=== PATIENT | female | born 1960 | race American Indian/Alaskan Native ===

== ENCOUNTER 2020-09-08 16:31 | Emergency (ER) | payer MEDICAID ==
--- NOTE | 2020-09-08 19:40 | Event Note ---
ED Screening Note Date of service: 09/08/20 Time: 19:39 ED Screening Note: Patient 52-year-old -[place] female history of EtOH abuse states substance abuse polyps. Question medical clearance for rehab. Patient states occasional thoughts of SI however no SI at this time. No plan, patient denies other symptoms. This initial assessment/diagnostic orders/clinical plan/treatment(s) is/are subject to change based on patients health status, clinical progression and re- assessment by fellow clinical providers in the ED. Further treatment and workup at subsequent clinical providers discretion. Patient/guardian urged not to elope from the ED as their condition may be serious if not clinically assessed and managed. Initial orders include: Pych Eval, uds, cbc, bmp, salic. tyl, dilantin
[2020-09-08 20:22] LABS: Hematocrit 38.2 % (30.3-42.9); Hemoglobin 13.1 gm/dl (10.1-14.3); Mean Corpuscular HGB Conc 34 % (30-34); Mean Corpuscular Volume 100 fl (79-97); Platelet Count 226 K/mm3 (140-440); Red Blood Count 3.82 M/mm3 (3.65-5.03); Red Cell Distribution Width 12.9 % (13.2-15.2)
[2020-09-08 20:36] LABS: Calcium 9.3 mg/dL (8.4-10.2)
[2020-09-08 21:32] LABS: Total Cells Counted 100
[2020-09-08 21:33] LABS: Platelet Estimate Consistent w Auto; RBC Morphology Normal
--- NOTE | 2020-09-08 21:42 | Emergency Department Report ---
ED General Adult HPI - General Chief complaint: Medical Clearance Stated complaint: I need to get off drugs PUI?: No Time Seen by Provider: 09/08/20 21:22 Source: patient, RN notes reviewed Mode of arrival: Ambulatory Limitations: No Limitations - History of Present Illness Initial comments: The patient is a 60-year-old female. She is not known to myself previously. She has a history of HIV and hypertension, and polysubstance abuse. She does not know her CD4 count. She does not know her viral load. She indicates she has not been on her antiviral medications for about 1 month. She presents to the ER today with a primary complaint of wanting to get off alcohol and drugs. She last consumed alcohol yesterday. She last consumed crack cocaine yesterday. She states that she snorts crack cocaine. She does not inject. She denies physical pain. She denies loss of taste and smell. She denies nausea, vomiting and diarrhea. She is anxious. She was feeling suicidal, and she has been having hallucinations. The patient states that she was at [place], trying to get out of the sun, and then came here. Previously, she states that she has lived in [place]. She reports that she gets SSI check once or twice a month, via daily directed positive. She thinks it is on the first of the month. The patient states that she is currently homeless, and evicted, and has no place to go. The patient currently denies headache, neck pain, chest pain, abdominal pain, shortness of breath, urinary symptoms. She is hungry. -: Gradual Improves with: none Worsens with: none - Related Data Home Medications Medication Instructions Recorded Confirmed Last Taken Bictegrav/Emtricit/Tenofov Ala 1 each PO DAILY 09/08/20 09/08/20 Unknown [Biktarvy 50-200-25 mg (Nf)] Cholecalciferol (Vitamin D3) 1,000 unit PO DAILY 09/08/20 09/08/20 Unknown [Vitamin D3] Fenofibrate Nanocrystallized 54 mg PO DAILY 09/08/20 09/08/20 Unknown [Fenofibrate] Vivian Carbonate ER [Lithobid ER] 300 mg PO QHS 09/08/20 09/08/20 Unknown Losartan [Cozaar] 50 mg PO QDAY 09/08/20 09/08/20 Unknown Metoprolol Xl [Metoprolol 100 mg PO QDAY 09/08/20 09/08/20 Unknown SUCCINATE ER TAB] Oxybutynin Chloride [Ditropan Xl] 10 mg PO QDAY 09/08/20 09/08/20 Unknown Ziprasidone HCl [Geodon] 80 mg PO QPM 09/08/20 09/08/20 Unknown Ziprasidone [Geodon] 60 mg PO QAM 09/08/20 09/08/20 Unknown Previous Rx's Medication Instructions Recorded Last Taken Type Sulfamethoxazole/Trimethoprim 1 each PO BID #10 tablet 09/11/20 Unknown Rx [Bactrim 400-80 mg Tablet] Allergies Allergy/AdvReac Type Severity Reaction Status Date / Time lisinopril Allergy Angioedema Verified 09/08/20 22:03 ED Review of Systems ROS: Stated complaint: MH EVAL Other details as noted in HPI Constitutional: denies: fever Eyes: denies: eye discharge ENT: denies: epistaxis Respiratory: denies: cough Cardiovascular: denies: chest pain Gastrointestinal: denies: abdominal pain, nausea, vomiting Genitourinary: denies: dysuria Musculoskeletal: denies: back pain Psychiatric: anxiety, depression, visual hallucinations, suicidal thoughts ED Past Medical Hx - Past Medical History Hx Hypertension: Yes Hx HIV: Yes - Surgical History Past Surgical History?: No - Social History Smoking Status: Former Smoker Substance Use Type: Alcohol, Cocaine - Medications Home Medications: Home Medications Medication Instructions Recorded Confirmed Last Taken Type Bictegrav/Emtricit/Tenofov Ala 1 each PO DAILY 09/08/20 09/08/20 Unknown History [Biktarvy 50-200-25 mg (Nf)] Cholecalciferol (Vitamin D3) 1,000 unit PO DAILY 09/08/20 09/08/20 Unknown History [Vitamin D3] Fenofibrate Nanocrystallized 54 mg PO DAILY 09/08/20 09/08/20 Unknown History [Fenofibrate] Vivian Carbonate ER [Lithobid ER] 300 mg PO QHS 09/08/20 09/08/20 Unknown History Losartan [Cozaar] 50 mg PO QDAY 09/08/20 09/08/20 Unknown History Metoprolol Xl [Metoprolol 100 mg PO QDAY 09/08/20 09/08/20 Unknown History SUCCINATE ER TAB] Oxybutynin Chloride [Ditropan Xl] 10 mg PO QDAY 09/08/20 09/08/20 Unknown History Ziprasidone HCl [Geodon] 80 mg PO QPM 09/08/20 09/08/20 Unknown History Ziprasidone [Geodon] 60 mg PO QAM 09/08/20 09/08/20 Unknown History Sulfamethoxazole/Trimethoprim 1 each PO BID #10 tablet 09/11/20 Unknown Rx [Bactrim 400-80 mg Tablet] ED Physical Exam - General Limitations: No Limitations General appearance: alert, anxious, obese - Head Head exam: Present: atraumatic, normocephalic - Eye Eye exam: Present: normal appearance, EOMI. Absent: nystagmus - ENT ENT exam: Present: normal exam, normal orophraynx, mucous membranes moist, normal external ear exam, other (No tongue fasciculations noted) - Neck Neck exam: Present: normal inspection, full ROM. Absent: tenderness, menin gismus - Respiratory Respiratory exam: Present: normal lung sounds bilaterally. Absent: respiratory distress, wheezes, rales, rhonchi, stridor, decreased breath sounds - Cardiovascular Cardiovascular Exam: Present: normal rhythm, tachycardia, normal heart sounds. Absent: bradycardia, irregular rhythm, systolic murmur, diastolic murmur, rubs, gallop - GI/Abdominal GI/Abdominal exam: Present: soft. Absent: distended, tenderness, guarding, rebound, rigid, pulsatile mass - Extremities Exam Extremities exam: Present: normal inspection, full ROM, other (2+ pulses noted in the bilateral upper and lower extremities. There is no palpable cord. negative Homans sign. Muscular compartments are soft. The pelvis is stable.). Absent: pedal edema, calf tenderness - Back Exam Back exam: Present: normal inspection, full ROM. Absent: tenderness, CVA tenderness (R), CVA tenderness (L), paraspinal tenderness, vertebral tenderness - Neurological Exam Neurological exam: Present: alert, oriented X3, other (No facial droop. Tongue midline. Extraocular movements intact bilaterally. Facial sensation intact to light touch in V1, V2, V3 distribution bilaterally. 5 and a 5 strength in 4 extremities. Sensation intact to light touch in 4 extremities.) - Psychiatric Psychiatric exam: Present: anxious, suicidal ideation. Absent: homicidal ideation - Skin Skin exam: Present: warm, dry, intact, normal color. Absent: rash ED Course Vital Signs 09/08/20 09/08/20 09/08/20 19:36 21:44 23:00 Temperature 99.4 F 99.6 F Pulse Rate 103 H 98 H 105 H Respiratory 18 22 20 Rate Blood Pressure 129/91 Blood Pressure 134/86 136/94 [Left] O2 Sat by Pulse 95 99 99 Oximetry 09/08/20 09/09/20 09/09/20 23:07 01:00 03:00 Temperature Pulse Rate 91 H 82 Respiratory 20 20 20 Rate Blood Pressure Blood Pressure 138/73 132/65 [Left] O2 Sat by Pulse 99 99 98 Oximetry 09/09/20 05:00 Temperature Pulse Rate 85 Respiratory 20 Rate Blood Pressure Blood Pressure 132/67 [Left] O2 Sat by Pulse 99 Oximetry - Reevaluation(s) Reevaluation #1: 09/08/20 22:00 Differential diagnosis, including but not limited to: Alcohol dependence, crack cocaine dependence, dehydration, malnutrition, electrolyte derangement, hypovolemic hyponatremia, beer podomania, alcohol withdrawal, medical clearance for psychiatric placement. Assessment and plan: 60-year-old female, who is anxious, fidgeting, tachycardic, with no obvious tongue fasciculations, who is awake, alert, oriented, not encephalopathic, without meningeal signs, with a primary complaint of request for alcohol and crack cocaine detox, secondary complaint of homelessness, on review of systems, has hallucinations and intermittent suicidality. She is not violent, she is pleasant and cooperative. Place patient on 1013. Laboratory studies ordered prior to my personal evaluation of this patient. She is found to have hyponatremia, which I suspect is hypovolemic hyponatremia/beer Podo markus, as well as hypokalemia. Start patient on banana bag, replete potassium, and also order lactated Ringer's. Obtain liver panel, magnesium, ammonia, CK. Place patient on alcohol withdrawal protocol. Give Valium empirically x1 dose. Order hyponatremia labs. Have requested urinalysis, urine toxicology screen. Have requested psychiatric since mental health evaluation. Have requested that nursing team reconcile home medications. Have discussed this plan of care with the patient, she has articulated understanding, and she is amenable to this plan of care. 09/08/20 22:11 Reevaluation #2: 09/08/20 22:59 Heart rate 98 bpm. Sleeping comfortably. Nursing team reports initial ciwa score is 15 Reevaluation #3: 09/09/20 02:47 Patient remains comfortable. Repeat basic metabolic panel shows improvement from initial hyponatremia. Urinalysis suggest urinary tract infection. Mild hypocalcemia appreciated, this may be delusional. TSH within normal limits. LFT, ammonia, within normal limits. Minimal uric acid elevation reviewed and appreciated. Do not suspect acute gout. Outpatient follow-up at this time. Patient resting comfortably, protecting airway, and tachycardia has resolved at this time. At this point in time, the patient does not appear to have an immediate medical contraindication to psychiatric admission, evaluation, consultation and placement. Macrobid twice daily for 14 days for possible urinary tract infection. Calcium carbonate daily for mild hypocalcemia. Multivitamin daily. Benzodiazepine as needed alcohol withdrawal. 09/09/20 05:40 Patient resting comfortably. Home medications reviewed and appreciated. It appears that patient is on lithium. We have ordered a lithium level. Patient's care will be signed out to the oncoming ER physician, to follow-up on lithium level. Assuming lithium within normal limits, we would consider this patient medically suitable for psychiatric admission, evaluation, consultation and placement. 09/11/20 10:21 Vivian level was within normal limits. The patient was ultimately cleared by the psychiatry team for discharge. It appears that she was discharged without antibiotics. I did not discharge this patient. Her culture results are reviewed. I have written this patient. Bactrim prescription. I called up the patient at listed phone number, nobody answered, so I left a voicemail for call back. Awaiting patient's call back. ED Medical Decision Making - Lab Data Result diagrams: 09/08/20 20:00 09/09/20 00:12 Vital Signs 09/08/20 09/08/20 19:36 21:44 Temperature 99.4 F 99.6 F Pulse Rate 103 H 98 H Respiratory 18 22 Rate Blood Pressure 129/91 Blood Pressure 134/86 [Left] O2 Sat by Pulse 95 99 Oximetry Lab Results 09/08/20 09/08/20 09/08/20 Range/Units 20:00 20:00 20:00 WBC 11.9 H (4.5-11.0) K/mm3 RBC 3.82 (3.65-5.03) M/mm3 Hgb 13.1 (10.1-14.3) gm/dl Hct 38.2 (30.3-42.9) % MCV 100 H (79-97) fl MCH 34 H (28-32) pg MCHC 34 (30-34) % RDW 12.9 L (13.2-15.2) % Plt Count 226 (140-440) K/mm3 Add Manual Diff Complete Total Counted 100 Seg Neuts % (Manual) 81.0 H (40.0-70.0) % Lymphocytes % (Manual) 9.0 L (13.4-35.0) % Reactive Lymphs % (Man) 1.0 % Monocytes % (Manual) 7.0 (0.0-7.3) % Eosinophils % (Manual) 1.0 (0.0-4.3) % Basophils % (Manual) 1.0 (0.0-1.8) % Nucleated RBC % Not Reportable Seg Neutrophils # Man 9.6 H (1.8-7.7) K/mm3 Band Neutrophils # 0.0 K/mm3 Lymphocytes # (Manual) 1.1 L (1.2-5.4) K/mm3 Abs React Lymphs (Man) 0.1 K/mm3 Monocytes # (Manual) 0.8 (0.0-0.8) K/mm3 Eosinophils # (Manual) 0.1 (0.0-0.4) K/mm3 Basophils # (Manual) 0.1 (0.0-0.1) K/mm3 Metamyelocytes # 0.0 K/mm3 Myelocytes # 0.0 K/mm3 Promyelocytes # 0.0 K/mm3 Blast Cells # 0.0 K/mm3 WBC Morphology Not Reportable Hypersegmented Neuts Not Reportable Hyposegmented Neuts Not Reportable Hypogranular Neuts Not Reportable Smudge Cells Not Reportable Toxic Granulation Not Reportable Toxic Vacuolation Not Reportable Dohle Bodies Not Reportable Pelger-Huet Anomaly Not Reportable Mj Rods Not Reportable Platelet Estimate Consistent w auto Clumped Platelets Not Reportable Plt Clumps, EDTA Not Reportable Large Platelets Not Reportable Giant Platelets Not Reportable Platelet Satelliting Not Reportable Plt Morphology Comment Not Reportable RBC Morphology Normal Dimorphic RBCs Not Reportable Polychromasia Not Reportable Hypochromasia Not Reportable Poikilocytosis Not Reportable Anisocytosis Not Reportable Microcytosis Not Reportable Macrocytosis Not Reportable Spherocytes Not Reportable Pappenheimer Bodies Not Reportable Sickle Cells Not Reportable Target Cells Not Reportable Tear Drop Cells Not Reportable Ovalocytes Not Reportable Helmet Cells Not Reportable [place] Bodies Not Reportable [place] Rings Not Reportable Clymer Cells Not Reportable Bite Cells Not Reportable Crenated Cell Not Reportable Elliptocytes Not Reportable Acanthocytes (Spur) Not Reportable Rouleaux Not Reportable Hemoglobin C Crystals Not Reportable Schistocytes Not Reportable Malaria parasites Not Reportable Lucian Bodies Not Reportable Hem Pathologist Commnt No Sodium 129 L (137-145) mmol/L Potassium 2.9 L* (3.6-5.0) mmol/L Chloride 91.5 L (98-107) mmol/L Carbon Dioxide 20 L (22-30) mmol/L Anion Gap 20 mmol/L BUN 21 H (7-17) mg/dL Creatinine 1.2 (0.6-1.2) mg/dL Estimated GFR 46 ml/min BUN/Creatinine Ratio 18 % Glucose 105 H (65-100) mg/dL Calcium 9.3 (8.4-10.2) mg/dL Salicylates < 0.3 L (2.8-20.0) mg/dL Acetaminophen (10.0-30.0) ug/mL Phenytoin 0.8 L (10.0-20.0) ug/mL 09/08/20 Range/Units 20:00 WBC (4.5-11.0) K/mm3 RBC (3.65-5.03) M/mm3 Hgb (10.1-14.3) gm/dl Hct (30.3-42.9) % MCV (79-97) fl MCH (28-32) pg MCHC (30-34) % RDW (13.2-15.2) % Plt Count (140-440) K/mm3 Add Manual Diff Total Counted Seg Neuts % (Manual) (40.0-70.0) % Lymphocytes % (Manual) (13.4-35.0) % Reactive Lymphs % (Man) % Monocytes % (Manual) (0.0-7.3) % Eosinophils % (Manual) (0.0-4.3) % Basophils % (Manual) (0.0-1.8) % Nucleated RBC % Seg Neutrophils # Man (1.8-7.7) K/mm3 Band Neutrophils # K/mm3 Lymphocytes # (Manual) (1.2-5.4) K/mm3 Abs React Lymphs (Man) K/mm3 Monocytes # (Manual) (0.0-0.8) K/mm3 Eosinophils # (Manual) (0.0-0.4) K/mm3 Basophils # (Manual) (0.0-0.1) K/mm3 Metamyelocytes # K/mm3 Myelocytes # K/mm3 Promyelocytes # K/mm3 Blast Cells # K/mm3 WBC Morphology Hypersegmented Neuts Hyposegmented Neuts Hypogranular Neuts Smudge Cells Toxic Granulation Toxic Vacuolation Dohle Bodies Pelger-Huet Anomaly Mj Rods Platelet Estimate Clumped Platelets Plt Clumps, EDTA Large Platelets Giant Platelets Platelet Satelliting Plt Morphology Comment RBC Morphology Dimorphic RBCs Polychromasia Hypochromasia Poikilocytosis Anisocytosis Microcytosis Macrocytosis Spherocytes Pappenheimer Bodies Sickle Cells Target Cells Tear Drop Cells Ovalocytes Helmet Cells [place] Bodies [place] Rings Clymer Cells Bite Cells Crenated Cell Elliptocytes Acanthocytes (Spur) Rouleaux Hemoglobin C Crystals Schistocytes Malaria parasites Lucian Bodies Hem Pathologist Commnt Sodium (137-145) mmol/L Potassium (3.6-5.0) mmol/L Chloride (98-107) mmol/L Carbon Dioxide (22-30) mmol/L Anion Gap mmol/L BUN (7-17) mg/dL Creatinine (0.6-1.2) mg/dL Estimated GFR ml/min BUN/Creatinine Ratio % Glucose (65-100) mg/dL Calcium (8.4-10.2) mg/dL Salicylates (2.8-20.0) mg/dL Acetaminophen 5.0 L (10.0-30.0) ug/mL Phenytoin (10.0-20.0) ug/mL Vital Signs 09/08/20 09/08/20 09/08/20 19:36 21:44 23:00 Temperature 99.4 F 99.6 F Pulse Rate 103 H 98 H 105 H Respiratory 18 22 20 Rate Blood Pressure 129/91 Blood Pressure 134/86 136/94 [Left] O2 Sat by Pulse 95 99 99 Oximetry 09/08/20 09/09/20 23:07 01:00 Temperature Pulse Rate 91 H Respiratory 20 20 Rate Blood Pressure Blood Pressure 138/73 [Left] O2 Sat by Pulse 99 99 Oximetry Lab Results 09/08/20 09/08/20 09/08/20 Range/Units 20:00 20:00 20:00 WBC 11.9 H (4.5-11.0) K/mm3 RBC 3.82 (3.65-5.03) M/mm3 Hgb 13.1 (10.1-14.3) gm/dl Hct 38.2 (30.3-42.9) % MCV 100 H (79-97) fl MCH 34 H (28-32) pg MCHC 34 (30-34) % RDW 12.9 L (13.2-15.2) % Plt Count 226 (140-440) K/mm3 Add Manual Diff Complete Total Counted 100 Seg Neuts % (Manual) 81.0 H (40.0-70.0) % Lymphocytes % (Manual) 9.0 L (13.4-35.0) % Reactive Lymphs % (Man) 1.0 % Monocytes % (Manual) 7.0 (0.0-7.3) % Eosinophils % (Manual) 1.0 (0.0-4.3) % Basophils % (Manual) 1.0 (0.0-1.8) % Nucleated RBC % Not Reportable Seg Neutrophils # Man 9.6 H (1.8-7.7) K/mm3 Band Neutrophils # 0.0 K/mm3 Lymphocytes # (Manual) 1.1 L (1.2-5.4) K/mm3 Abs React Lymphs (Man) 0.1 K/mm3 Monocytes # (Manual) 0.8 (0.0-0.8) K/mm3 Eosinophils # (Manual) 0.1 (0.0-0.4) K/mm3 Basophils # (Manual) 0.1 (0.0-0.1) K/mm3 Metamyelocytes # 0.0 K/mm3 Myelocytes # 0.0 K/mm3 Promyelocytes # 0.0 K/mm3 Blast Cells # 0.0 K/mm3 WBC Morphology Not Reportable Hypersegmented Neuts Not Reportable Hyposegmented Neuts Not Reportable Hypogranular Neuts Not Reportable Smudge Cells Not Reportable Toxic Granulation Not Reportable Toxic Vacuolation Not Reportable Dohle Bodies Not Reportable Pelger-Huet Anomaly Not Reportable Mj Rods Not Reportable Platelet Estimate Consistent w auto Clumped Platelets Not Reportable Plt Clumps, EDTA Not Reportable Large Platelets Not Reportable Giant Platelets Not Reportable Platelet Satelliting Not Reportable Plt Morphology Comment Not Reportable RBC Morphology Normal Dimorphic RBCs Not Reportable Polychromasia Not Reportable Hypochromasia Not Reportable Poikilocytosis Not Reportable Anisocytosis Not Reportable Microcytosis Not Reportable Macrocytosis Not Reportable Spherocytes Not Reportable Pappenheimer Bodies Not Reportable Sickle Cells Not Reportable Target Cells Not Reportable Tear Drop Cells Not Reportable Ovalocytes Not Reportable Helmet Cells Not Reportable [place] Bodies Not Reportable [place] Rings Not Reportable Adrianne Cells Not Reportable Bite Cells Not Reportable Crenated Cell Not Reportable Elliptocytes Not Reportable Acanthocytes (Spur) Not Reportable Rouleaux Not Reportable Hemoglobin C Crystals Not Reportable Schistocytes Not Reportable Malaria parasites Not Reportable Lucian Bodies Not Reportable Hem Pathologist Commnt No Sodium 129 L (137-145) mmol/L Potassium 2.9 L* (3.6-5.0) mmol/L Chloride 91.5 L (98-107) mmol/L Carbon Dioxide 20 L (22-30) mmol/L Anion Gap 20 mmol/L BUN 21 H (7-17) mg/dL Creatinine 1.2 (0.6-1.2) mg/dL Estimated GFR 46 ml/min BUN/Creatinine Ratio 18 % Glucose 105 H (65-100) mg/dL Uric Acid (3.5-7.6) mg/dL Calcium 9.3 (8.4-10.2) mg/dL Magnesium (1.7-2.3) mg/dL Total Bilirubin (0.1-1.2) mg/dL Direct Bilirubin (0-0.2) mg/dL Indirect Bilirubin mg/dL AST (5-40) units/L ALT (7-56) units/L Alkaline Phosphatase (35-129) units/L Ammonia (25-60) umol/L Total Creatine Kinase (30-135) units/L Total Protein (6.3-8.2) g/dL Albumin (3.9-5) g/dL Albumin/Globulin Ratio % TSH (0.270-4.200) mlU/mL Urine Color (Yellow) Urine Turbidity (Clear) Urine pH (5.0-7.0) Ur Specific Story (1.003-1.030) Urine Protein (Negative) mg/dL Urine Glucose (UA) (Negative) mg/dL Urine Ketones (Negative) mg/dL Urine Blood (Negative) Urine Nitrite (Negative) Urine Bilirubin (Negative) Urine Urobilinogen (<2.0) mg/dL Ur Leukocyte Esterase (Negative) Urine WBC (Auto) (0.0-6.0) /HPF Urine RBC (Auto) (0.0-6.0) /HPF U Epithel Cells (Auto) (0-13.0) /HPF Urine Bacteria (Auto) (Negative) /HPF Hyaline Casts /LPF Urine Mucus /HPF Urine Osmolality Mosm/kg Urine Sodium mmol/L Salicylates < 0.3 L (2.8-20.0) mg/dL Urine Opiates Screen Urine Methadone Screen Acetaminophen (10.0-30.0) ug/mL Ur Barbiturates Screen Phenytoin 0.8 L (10.0-20.0) ug/mL Ur Phencyclidine Scrn Ur Amphetamines Screen U Benzodiazepines Scrn Urine Cocaine Screen U Marijuana (THC) Screen Drugs of Abuse Note 09/08/20 09/08/20 09/08/20 Range/Units 20:00 22:36 22:36 WBC (4.5-11.0) K/mm3 RBC (3.65-5.03) M/mm3 Hgb (10.1-14.3) gm/dl Hct (30.3-42.9) % MCV (79-97) fl MCH (28-32) pg MCHC (30-34) % RDW (13.2-15.2) % Plt Count (140-440) K/mm3 Add Manual Diff Total Counted Seg Neuts % (Manual) (40.0-70.0) % Lymphocytes % (Manual) (13.4-35.0) % Reactive Lymphs % (Man) % Monocytes % (Manual) (0.0-7.3) % Eosinophils % (Manual) (0.0-4.3) % Basophils % (Manual) (0.0-1.8) % Nucleated RBC % Seg Neutrophils # Man (1.8-7.7) K/mm3 Band Neutrophils # K/mm3 Lymphocytes # (Manual) (1.2-5.4) K/mm3 Abs React Lymphs (Man) K/mm3 Monocytes # (Manual) (0.0-0.8) K/mm3 Eosinophils # (Manual) (0.0-0.4) K/mm3 Basophils # (Manual) (0.0-0.1) K/mm3 Metamyelocytes # K/mm3 Myelocytes # K/mm3 Promyelocytes # K/mm3 Blast Cells # K/mm3 WBC Morphology Hypersegmented Neuts Hyposegmented Neuts Hypogranular Neuts Smudge Cells Toxic Granulation Toxic Vacuolation Dohle Bodies Pelger-Huet Anomaly Mj Rods Platelet Estimate Clumped Platelets Plt Clumps, EDTA Large Platelets Giant Platelets Platelet Satelliting Plt Morphology Comment RBC Morphology Dimorphic RBCs Polychromasia Hypochromasia Poikilocytosis Anisocytosis Microcytosis Macrocytosis Spherocytes Pappenheimer Bodies Sickle Cells Target Cells Tear Drop Cells Ovalocytes Helmet Cells [place] Bodies [place] Rings Clymer Cells Bite Cells Crenated Cell Elliptocytes Acanthocytes (Spur) Rouleaux Hemoglobin C Crystals Schistocytes Malaria parasites Lucian Bodies Hem Pathologist Commnt Sodium (137-145) mmol/L Potassium (3.6-5.0) mmol/L Chloride (98-107) mmol/L Carbon Dioxide (22-30) mmol/L Anion Gap mmol/L BUN (7-17) mg/dL Creatinine (0.6-1.2) mg/dL Estimated GFR ml/min BUN/Creatinine Ratio % Glucose (65-100) mg/dL Uric Acid (3.5-7.6) mg/dL Calcium (8.4-10.2) mg/dL Magnesium 1.90 (1.7-2.3) mg/dL Total Bilirubin 0.60 (0.1-1.2) mg/dL Direct Bilirubin 0.2 (0-0.2) mg/dL Indirect Bilirubin 0.4 mg/dL AST 44 H (5-40) units/L ALT 40 (7-56) units/L Alkaline Phosphatase 87 (35-129) units/L Ammonia 55.0 (25-60) umol/L Total Creatine Kinase 770 H (30-135) units/L Total Protein 8.0 (6.3-8.2) g/dL Albumin 4.0 (3.9-5) g/dL Albumin/Globulin Ratio 1.0 % TSH (0.270-4.200) mlU/mL Urine Color (Yellow) Urine Turbidity (Clear) Urine pH (5.0-7.0) Ur Specific Story (1.003-1.030) Urine Protein (Negative) mg/dL Urine Glucose (UA) (Negative) mg/dL Urine Ketones (Negative) mg/dL Urine Blood (Negative) Urine Nitrite (Negative) Urine Bilirubin (Negative) Urine Urobilinogen (<2.0) mg/dL Ur Leukocyte Esterase (Negative) Urine WBC (Auto) (0.0-6.0) /HPF Urine RBC (Auto) (0.0-6.0) /HPF U Epithel Cells (Auto) (0-13.0) /HPF Urine Bacteria (Auto) (Negative) /HPF Hyaline Casts /LPF Urine Mucus /HPF Urine Osmolality Mosm/kg Urine Sodium mmol/L Salicylates (2.8-20.0) mg/dL Urine Opiates Screen Urine Methadone Screen Acetaminophen 5.0 L (10.0-30.0) ug/mL Ur Barbiturates Screen Phenytoin (10.0-20.0) ug/mL Ur Phencyclidine Scrn Ur Amphetamines Screen U Benzodiazepines Scrn Urine Cocaine Screen U Marijuana (THC) Screen Drugs of Abuse Note 09/08/20 09/08/20 09/09/20 Range/Units 22:36 22:36 00:12 WBC (4.5-11.0) K/mm3 RBC (3.65-5.03) M/mm3 Hgb (10.1-14.3) gm/dl Hct (30.3-42.9) % MCV (79-97) fl MCH (28-32) pg MCHC (30-34) % RDW (13.2-15.2) % Plt Count (140-440) K/mm3 Add Manual Diff Total Counted Seg Neuts % (Manual) (40.0-70.0) % Lymphocytes % (Manual) (13.4-35.0) % Reactive Lymphs % (Man) % Monocytes % (Manual) (0.0-7.3) % Eosinophils % (Manual) (0.0-4.3) % Basophils % (Manual) (0.0-1.8) % Nucleated RBC % Seg Neutrophils # Man (1.8-7.7) K/mm3 Band Neutrophils # K/mm3 Lymphocytes # (Manual) (1.2-5.4) K/mm3 Abs React Lymphs (Man) K/mm3 Monocytes # (Manual) (0.0-0.8) K/mm3 Eosinophils # (Manual) (0.0-0.4) K/mm3 Basophils # (Manual) (0.0-0.1) K/mm3 Metamyelocytes # K/mm3 Myelocytes # K/mm3 Promyelocytes # K/mm3 Blast Cells # K/mm3 WBC Morphology Hypersegmented Neuts Hyposegmented Neuts Hypogranular Neuts Smudge Cells Toxic Granulation Toxic Vacuolation Dohle Bodies Pelger-Huet Anomaly Mj Rods Platelet Estimate Clumped Platelets Plt Clumps, EDTA Large Platelets Giant Platelets Platelet Satelliting Plt Morphology Comment RBC Morphology Dimorphic RBCs Polychromasia Hypochromasia Poikilocytosis Anisocytosis Microcytosis Macrocytosis Spherocytes Pappenheimer Bodies Sickle Cells Target Cells Tear Drop Cells Ovalocytes Helmet Cells [place] Bodies [place] Rings Clymer Cells Bite Cells Crenated Cell Elliptocytes Acanthocytes (Spur) Rouleaux Hemoglobin C Crystals Schistocytes Malaria parasites Lucian Bodies Hem Pathologist Commnt Sodium 138 D (137-145) mmol/L Potassium 3.7 D (3.6-5.0) mmol/L Chloride 107.0 (98-107) mmol/L Carbon Dioxide 22 (22-30) mmol/L Anion Gap 13 mmol/L BUN 19 H (7-17) mg/dL Creatinine 1.0 (0.6-1.2) mg/dL Estimated GFR > 60 ml/min BUN/Creatinine Ratio 19 % Glucose 145 H (65-100) mg/dL Uric Acid 11.5 H (3.5-7.6) mg/dL Calcium 6.8 L D (8.4-10.2) mg/dL Magnesium (1.7-2.3) mg/dL Total Bilirubin (0.1-1.2) mg/dL Direct Bilirubin (0-0.2) mg/dL Indirect Bilirubin mg/dL AST (5-40) units/L ALT (7-56) units/L Alkaline Phosphatase (35-129) units/L Ammonia (25-60) umol/L Total Creatine Kinase (30-135) units/L Total Protein (6.3-8.2) g/dL Albumin (3.9-5) g/dL Albumin/Globulin Ratio % TSH 0.700 (0.270-4.200) mlU/mL Urine Color (Yellow) Urine Turbidity (Clear) Urine pH (5.0-7.0) Ur Specific Story (1.003-1.030) Urine Protein (Negative) mg/dL Urine Glucose (UA) (Negative) mg/dL Urine Ketones (Negative) mg/dL Urine Blood (Negative) Urine Nitrite (Negative) Urine Bilirubin (Negative) Urine Urobilinogen (<2.0) mg/dL Ur Leukocyte Esterase (Negative) Urine WBC (Auto) (0.0-6.0) /HPF Urine RBC (Auto) (0.0-6.0) /HPF U Epithel Cells (Auto) (0-13.0) /HPF Urine Bacteria (Auto) (Negative) /HPF Hyaline Casts /LPF Urine Mucus /HPF Urine Osmolality Mosm/kg Urine Sodium mmol/L Salicylates (2.8-20.0) mg/dL Urine Opiates Screen Urine Methadone Screen Acetaminophen (10.0-30.0) ug/mL Ur Barbiturates Screen Phenytoin (10.0-20.0) ug/mL Ur Phencyclidine Scrn Ur Amphetamines Screen U Benzodiazepines Scrn Urine Cocaine Screen U Marijuana (THC) Screen Drugs of Abuse Note 09/09/20 09/09/20 09/09/20 Range/Units 01:19 01:19 01:19 WBC (4.5-11.0) K/mm3 RBC (3.65-5.03) M/mm3 Hgb (10.1-14.3) gm/dl Hct (30.3-42.9) % MCV (79-97) fl MCH (28-32) pg MCHC (30-34) % RDW (13.2-15.2) % Plt Count (140-440) K/mm3 Add Manual Diff Total Counted Seg Neuts % (Manual) (40.0-70.0) % Lymphocytes % (Manual) (13.4-35.0) % Reactive Lymphs % (Man) % Monocytes % (Manual) (0.0-7.3) % Eosinophils % (Manual) (0.0-4.3) % Basophils % (Manual) (0.0-1.8) % Nucleated RBC % Seg Neutrophils # Man (1.8-7.7) K/mm3 Band Neutrophils # K/mm3 Lymphocytes # (Manual) (1.2-5.4) K/mm3 Abs React Lymphs (Man) K/mm3 Monocytes # (Manual) (0.0-0.8) K/mm3 Eosinophils # (Manual) (0.0-0.4) K/mm3 Basophils # (Manual) (0.0-0.1) K/mm3 Metamyelocytes # K/mm3 Myelocytes # K/mm3 Promyelocytes # K/mm3 Blast Cells # K/mm3 WBC Morphology Hypersegmented Neuts Hyposegmented Neuts Hypogranular Neuts Smudge Cells Toxic Granulation Toxic Vacuolation Dohle Bodies Pelger-Huet Anomaly Jm Rods Platelet Estimate Clumped Platelets Plt Clumps, EDTA Large Platelets Giant Platelets Platelet Satelliting Plt Morphology Comment RBC Morphology Dimorphic RBCs Polychromasia Hypochromasia Poikilocytosis Anisocytosis Microcytosis Macrocytosis Spherocytes Pappenheimer Bodies Sickle Cells Target Cells Tear Drop Cells Ovalocytes Helmet Cells Mor[place] Bodies [place] Rings Adrianne Cells Bite Cells Crenated Cell Elliptocytes Acanthocytes (Spur) Rouleaux Hemoglobin C Crystals Schistocytes Malaria parasites Lucian Bodies Hem Pathologist Commnt Sodium (137-145) mmol/L Potassium (3.6-5.0) mmol/L Chloride (98-107) mmol/L Carbon Dioxide (22-30) mmol/L Anion Gap mmol/L BUN (7-17) mg/dL Creatinine (0.6-1.2) mg/dL Estimated GFR ml/min BUN/Creatinine Ratio % Glucose (65-100) mg/dL Uric Acid (3.5-7.6) mg/dL Calcium (8.4-10.2) mg/dL Magnesium (1.7-2.3) mg/dL Total Bilirubin (0.1-1.2) mg/dL Direct Bilirubin (0-0.2) mg/dL Indirect Bilirubin mg/dL AST (5-40) units/L ALT (7-56) units/L Alkaline Phosphatase (35-129) units/L Ammonia (25-60) umol/L Total Creatine Kinase (30-135) units/L Total Protein (6.3-8.2) g/dL Albumin (3.9-5) g/dL Albumin/Globulin Ratio % TSH (0.270-4.200) mlU/mL Urine Color Yellow (Yellow) Urine Turbidity Slightly-cloudy (Clear) Urine pH 6.0 (5.0-7.0) Ur Specific Story 1.010 (1.003-1.030) Urine Protein <15 mg/dl (Negative) mg/dL Urine Glucose (UA) Neg (Negative) mg/dL Urine Ketones Neg (Negative) mg/dL Urine Blood Mod (Negative) Urine Nitrite Pos (Negative) Urine Bilirubin Neg (Negative) Urine Urobilinogen 4.0 (<2.0) mg/dL Ur Leukocyte Esterase Mod (Negative) Urine WBC (Auto) 22.0 H (0.0-6.0) /HPF Urine RBC (Auto) 5.0 (0.0-6.0) /HPF U Epithel Cells (Auto) 7.0 (0-13.0) /HPF Urine Bacteria (Auto) 2+ (Negative) /HPF Hyaline Casts 1 /LPF Urine Mucus Few /HPF Urine Osmolality 290 Mosm/kg Urine Sodium 10 mmol/L Salicylates (2.8-20.0) mg/dL Urine Opiates Screen Presumptive negative Urine Methadone Screen Presumptive negative Acetaminophen (10.0-30.0) ug/mL Ur Barbiturates Screen Presumptive negative Phenytoin (10.0-20.0) ug/mL Ur Phencyclidine Scrn Presumptive negative Ur Amphetamines Screen Presumptive negative U Benzodiazepines Scrn Presumptive negative Urine Cocaine Screen Presumptive positive U Marijuana (THC) Screen Presumptive positive Drugs of Abuse Note Disclamer - EKG Data -: EKG Interpreted by Id EKG shows normal: sinus rhythm Rate: normal - EKG Data When compared to previous EKG there are: previous EKG unavailable 09/08/20 22:12 EKG interpreted at 21: 51. Sinus rhythm, motion artifact, normal P wave axis, normal axis, left ventricular hypertrophy, QTC 527 ms, motion artifact, abnormal EKG, not a STEMI, no prior for comparison. Critical care attestation.: If time is entered above; I have spent that time in minutes in the direct care of this critically ill patient, excluding procedure time. ED Disposition Clinical Impression: Alcohol dependence, Hypokalemia, Hyponatremia, Medical clearance for psychiatric admission, Noncompliance, Cocaine abuse, Bacteriuria with pyuria Disposition: DC-01 TO HOME OR SELFCARE Is pt being admited?: No Does the pt Need Aspirin: No Condition: Good Additional Instructions: HOMELESS RESOURCES: [facility] NEED HELP? If you are in need of help or know someone who does, please contact us at [email or web address] or call , or come to our offices at [address] [place] [address], Monday-Monday beginning at 8AM. City of [facility] [place]: [facility] Address: [facility] [address] [place] [address] How do I join the [facility] housing program? Our housing programs are offered based on availability. If you are looking to participate in our housing program, simply call [phone] to find out if we have available space. Since we do receive many calls, please allow up to 48 hours for one of our housing specialists to return your call. If we do not have vacancies, we suggest calling the [facility] hotline at 211 for additional housing options. [facility] Admission from 8am to 10am Daily No intake until 02/10/20 Address: [facility] [place] [address] [facility] WOMEN and FAMILY Admission Address: [address], [place] [address] Professional and Agency Contacts To help Resolve Crises(05/09) [place] Crisis Line: Suicide Prevention Line: Crisis Text Line: Text START to 207634 Emergency: 911 Outpatient COMMUNITY Behavioral Health Resources: DEKALB: [facility] [address] [place] [address] JANAE: [facility] [address] [place] [address] MONICA: [facility] - [address] [place] [address] Monday thru Monday - 8am - 5pm [facility] Address: [address], [place] [address] BERONICA: [facility] Address: [address] [place] [address] Monday thru Monday- 7am-2pm [facility] Address: [address] [place] [address] Monday thru Monday: 8:30AM-5PM OUTPATIENT MENTAL HEALTH RESOURCES [facility], [address] [place] [address] [facility] Meena Lazo MD: [address] [facility] [address] [place], [place] [id number] [facility]: [address] [place], [place] [id number] [employer] [facility] [place], [place] [id number] [phone] [facility]: [address] [facility] [address] [place], [place] [id number] [facility]: [address] [place] [address]. [facility] [id number] [facility]: [address] [place], [place] Gregorio Stoner MD: [address] [facility] [id number] [facility]: [address] [facility] [place], [place] [id number] [phone] [place] CRISIS AND ACCESS LINE: * In case of an emergency, please contact the following numbers: [place] Crisis and Access Line: Number: Crisis Text Line: (Text START) Number: 379082 Suicide Prevention Line: Number: Emergency Number: 911 SUBSTANCE ABUSE PROGRAMS: [facility]abeth: Location: [place], [place] [employer]! Address: [address] [place] [address] [facility]: Address: [address] [place] [address] [facility]: Address: [address] [place] [address] [facility]: Address: [address] [place] [address] [facility] Address: [address] [place] [address]. Please contact above numbers to attempt placement into free based program. Medicaid Programs: [facility]: Address: [address] [place] [address] [facility]: Address: [address] [place], [place] [id number] Prescriptions: Sulfamethoxazole/Trimethoprim [Bactrim 400-80 mg Tablet] 1 each PO BID #10 tablet Referrals: [facility] [Outside] - 3-5 Days PRIMARY CARE, [Primary Care Provider] - 3-5 Days
[2020-09-08] MEDS ORDERED: chlordiazePOXIDE 25 MG CAP PO PRN (21:45)
[2020-09-08] MEDS ORDERED: LORazepam 2 MG/ML VIAL IV PRN ×2 (21:45)
[2020-09-08] MEDS ORDERED: LACTATED RINGERS 1,000 ML IV ONE (21:48)
[2020-09-08] MEDS ORDERED: POTASSIUM CHLORIDE ER 20 MEQ TAB PO ONE (22:45)
[2020-09-08] MEDS ORDERED: THIAMINE 100 MG, FOLIC ACID 1 MG, MULTIPLE VITAMIN INJ, ADULT 10 ML in SODIUM CHLORIDE ... IV ONE (22:45)
[2020-09-08] MEDS: POTASSIUM CHLORIDE 10 MEQ 10 MEQ/100 ML BAG IV SCH (22:50)
[2020-09-08] MEDS ORDERED: diazePAM 10 MG/2 ML SYRINGE IV ONE ×2 (23:00→23:59)
[2020-09-08 23:16] LABS: Bilirubin,Direct 0.2 mg/dL (0-0.2)
[2020-09-09] MEDS: POTASSIUM CHLORIDE 10 MEQ 10 MEQ/100 ML BAG IV SCH ×3 (00:18→01:50)
[2020-09-09 00:40] LABS: BUN/Creatinine Ratio 19; Blood Urea Nitrogen 19 mg/dL (7-17); Calcium 6.8 mg/dL (8.4-10.2); Hemolysis Index 11
[2020-09-09 01:54] LABS: Bacteria,Urine 2+ /HPF (Negative); Bilirubin,Urine NEG (Negative); Blood,Urine MOD (Negative); Color,Urine Yellow (Yellow); Hyaline Casts,Urine 1 /LPF; Mucus,Urine FEW /HPF; Protein,Urine <15 mg/dL mg/dL (Negative)
[2020-09-09 01:55] LABS: Amphetamine Screen,Urine PRESUMPTIVE NEGATIVE; Benzodiazepines Screen,Urine PRESUMPTIVE NEGATIVE; Cannabinoid Screen,Urine PRESUMPTIVE POSITIVE; Cocaine Screen,Urine PRESUMPTIVE POSITIVE; Methadone Screen,Urine PRESUMPTIVE NEGATIVE; Opiate Screen,Urine PRESUMPTIVE NEGATIVE
[2020-09-09 01:56] LABS: Osmolality,Urine 290 Mosm/kg
[2020-09-09] MEDS ORDERED: CALCIUM CARBONATE 500 MG TAB CHEW PO ONE (02:45)
[2020-09-09] MEDS: NITROFURANTOIN MONOHYD/M-CRYST 100 MG CAP PO SCH ×2 (03:36→13:48)
[2020-09-09] MEDS ORDERED: CALCIUM GLUCONATE 1,000 MG in SODIUM CHLORIDE 0.9% 100 ML IV ONE (03:45)
[2020-09-09 06:48] VITALS: BP 132/67
[2020-09-09] MEDS ORDERED: CALCIUM CARBONATE 500 MG TAB CHEW PO SCH (10:00)
[2020-09-09] MEDS ORDERED: FENOFIBRATE 48 MG TAB PO SCH (10:00)
[2020-09-09] MEDS ORDERED: LOSARTAN 50 MG TAB PO SCH (10:00)
[2020-09-09] MEDS ORDERED: METOPROLOL SUCCINATE XL 100 MG TAB PO SCH (10:00)
[2020-09-09] MEDS ORDERED: DOLUTEGRAVIR 50 MG TAB PO SCH (10:00)
[2020-09-09] MEDS ORDERED: CHOLECALCIFEROL (VIT D3) 1000 UNIT (25 mcg) TAB PO SCH (10:00)
[2020-09-09] MEDS ORDERED: NON-FORMULARY EACH (Bictegrav/Emtricit/Tenofov Ala 1 EACH Tablet) PO SCH (10:00)
[2020-09-09] MEDS ORDERED: EMTRICITABINE 200 MG CAP PO SCH (10:00)
[2020-09-09] MEDS ORDERED: TENOFOVIR 300 MG TAB PO SCH (10:00)
--- NOTE | 2020-09-09 10:20 | Consultation ---
History of Present Illness - Reason for Consult Consult date: 09/09/20 Reason for consult: Mental health evaluation - History of Present Psychiatric Illness ED Note: Patient 52-year-old -Luxembourger female history of EtOH abuse states substance abuse polyps. Question medical clearance for rehab. Patient states occasional thoughts of SI however no SI at this time. No plan, patient denies other symptoms. Kelin Peterson is a 60 year old female with history of Alcohol use disorder, Schizophrenia, Bipolar and Polysubstance abuse who presents to the ED seeking detox. In my interview with the patient, She states she is seeking help for alcohol and substance abuse ( drug of choice- crack). The patient reports her longest sobriety period as 15 years, states she relapsed last July due to life situations and relationship problems. She reports consuming about a pint of wine daily ( last used 2 days ago). The patient presents with restlessness a, mild tremors and cravings for alcohol and crack. She denies any current suicidal ideation and denies hallucinations. PAST PSYCHIATRIC HISTORY Diagnoses:Alcohol use disorder, Schizophrenia, Bipolar and Polysubstance abuse Suicide attempts or Self-harm behavior: Denies Prior psychiatric hospitalizations: Yes Substance Abuse history: Yes- Previous psychiatric medications tried: unknown Outpatient treatment: Yes SOCIAL HISTORY Marital Status: Single Living Arrangements: Homeless Employment Status: unemployed Access to guns/weapons: Denied Education: GED History of Abuse: Denied Legal History: None reported REVIEW OF SYSTEMS Constitutional: Negative for weight loss ENT: Negative for stridor Respiratory: Negative for cough or hemoptysis All other systems reviewed and are negative MENTAL STATUS EXAMINATION General Appearance and Behavior: Age appropriate, dressed appropriately, calm and cooperative Cooperation: Participating Psychomotor Behavior: psychomotor normal Mood: calm Affect and affective range: Congruent with stated mood Thought Process: goal directed Thought Content: with normal limits Speech: Normal volume, Regular rate and rhythm, Intellectual Functioning: Average Suicidal Ideation: Denied Homicidal Ideation: Denied Hallucinations: Denied Delusions: None elicited Impulse Control: Unimpaired Insight and Judgment: Limited insight and judgment, Memory: Normal Attention: Undivided Orientation: Alert, oriented Assessment and Plan (1) Alcohol use Disorder, severe- F10 (2) Cocaine Use disorder Treatment plan Risks, benefits and alternatives of medications discussed with the patient, questions answered and consent obtained from patient. PSYCHOTHERAPY: Supportive psychotherapy provided MEDICAL: Per primary team DELIRIUM PRECAUTIONS: Please re-orient patient frequently, keep lights on during the day, and minimize benzodiazepines and opiates as these medications could worsen patient's confusion. IMPORTER EXPORTER: Per medical team DISPOSITION: Do not recommend acute inpatient psychiatric hospitalization. FOLLOW-UP: Will sign off. Thank you for the consult. Please contact with any questions and/or concerns. Case staffed with Dr. Odell Medications and Allergies Allergies Allergy/AdvReac Type Severity Reaction Status Date / Time lisinopril Allergy Angioedema Verified 09/08/20 22:03 Home Medications Medication Instructions Recorded Confirmed Last Taken Type Bictegrav/Emtricit/Tenofov Ala 1 each PO DAILY 09/08/20 09/08/20 Unknown History [Biktarvy 50-200-25 mg (Nf)] Cholecalciferol (Vitamin D3) 1,000 unit PO DAILY 09/08/20 09/08/20 Unknown History [Vitamin D3] Fenofibrate Nanocrystallized 54 mg PO DAILY 09/08/20 09/08/20 Unknown History [Fenofibrate] [place] Carbonate ER [Lithobid ER] 300 mg PO QHS 09/08/20 09/08/20 Unknown History Losartan [Cozaar] 50 mg PO QDAY 09/08/20 09/08/20 Unknown History Metoprolol Xl [Metoprolol 100 mg PO QDAY 09/08/20 09/08/20 Unknown History SUCCINATE ER TAB] Oxybutynin Chloride [Ditropan Xl] 10 mg PO QDAY 09/08/20 09/08/20 Unknown History Ziprasidone HCl [Geodon] 80 mg PO QPM 09/08/20 09/08/20 Unknown History Ziprasidone [Geodon] 60 mg PO QAM 09/08/20 09/08/20 Unknown History Active Meds: Active Medications Calcium Carbonate/Glycine (Calcium Carbonate 500 Mg Tab Chew) 500 mg PO QDAY CHONG Chlordiazepoxide HCl (Chlordiazepoxide 25 Mg Cap) 50 mg PO Q1HR PRN PRN Reason: CIWA-Ar 09-27 Cholecalciferol (Cholecalciferol (Vit D3) 1000 Unit (25 Mcg) Tab) 1,000 unit PO DAILY CHONG Emtricitabine (Emtricitabine 200 Mg Cap) 200 mg PO QDAY CHONG Fenofibrate (Fenofibrate 48 Mg Tab) 48 mg PO DAILY CHONG Lorazepam (Lorazepam 2 Mg/Ml Vial) 2 mg IV Q1HR PRN PRN Reason: CIWA-Ar 8-15 Last Admin: 09/09/20 01:46 Dose: 2 mg Documented by: Lorazepam (Lorazepam 2 Mg/Ml Vial) 4 mg IV Q1HR PRN PRN Reason: CIWA-Ar 16-25 Losartan Potassium (Losartan 50 Mg Tab) 50 mg PO QDAY [facility] Metoprolol Succinate (Metoprolol Succinate Xl 100 Mg Tab) 100 mg PO QDAY [facility] Nitrofurantoin Macrocrystals (Nitrofurantoin Monohyd/M-Cryst 100 Mg Cap) 100 mg PO BID [facility] Stop: 09/15/20 10:01 Last Admin: 09/09/20 03:36 Dose: 100 mg Documented by: Tenofovir Disoproxil Fumarate (Tenofovir 300 Mg Tab) 300 mg PO QDAY [facility] Mental Status Exam - Vital signs Last Vital Signs Temp 99.6 F 09/08/20 21:44 Pulse 85 09/09/20 05:00 Resp 20 09/09/20 05:00 BP 132/67 09/09/20 05:00 Pulse Ox 99 09/09/20 05:00 Results Result Diagrams: 09/08/20 20:00 09/09/20 00:12 Abnormal lab results 09/08/20 09/08/20 09/08/20 Range/Units 20:00 20:00 20:00 WBC 11.9 H (4.5-11.0) K/mm3 MCV 100 H (79-97) fl MCH 34 H (28-32) pg RDW 12.9 L (13.2-15.2) % Seg Neuts % (Manual) 81.0 H (40.0-70.0) % Lymphocytes % (Manual) 9.0 L (13.4-35.0) % Seg Neutrophils # Man 9.6 H (1.8-7.7) K/mm3 Lymphocytes # (Manual) 1.1 L (1.2-5.4) K/mm3 Sodium 129 L (137-145) mmol/L Potassium 2.9 L* (3.6-5.0) mmol/L Chloride 91.5 L (98-107) mmol/L Carbon Dioxide 20 L (22-30) mmol/L BUN 21 H (7-17) mg/dL Glucose 105 H (65-100) mg/dL Uric Acid (3.5-7.6) mg/dL Calcium (8.4-10.2) mg/dL AST (5-40) units/L Total Creatine Kinase (30-135) units/L Urine WBC (Auto) (0.0-6.0) /HPF Salicylates < 0.3 L (2.8-20.0) mg/dL Acetaminophen (10.0-30.0) ug/mL Phenytoin 0.8 L (10.0-20.0) ug/mL 09/08/20 09/08/20 09/08/20 Range/Units 20:00 22:36 22:36 WBC (4.5-11.0) K/mm3 MCV (79-97) fl MCH (28-32) pg RDW (13.2-15.2) % Seg Neuts % (Manual) (40.0-70.0) % Lymphocytes % (Manual) (13.4-35.0) % Seg Neutrophils # Man (1.8-7.7) K/mm3 Lymphocytes # (Manual) (1.2-5.4) K/mm3 Sodium (137-145) mmol/L Potassium (3.6-5.0) mmol/L Chloride (98-107) mmol/L Carbon Dioxide (22-30) mmol/L BUN (7-17) mg/dL Glucose (65-100) mg/dL Uric Acid 11.5 H (3.5-7.6) mg/dL Calcium (8.4-10.2) mg/dL AST 44 H (5-40) units/L Total Creatine Kinase 770 H (30-135) units/L Urine WBC (Auto) (0.0-6.0) /HPF Salicylates (2.8-20.0) mg/dL Acetaminophen 5.0 L (10.0-30.0) ug/mL Phenytoin (10.0-20.0) ug/mL 09/09/20 09/09/20 Range/Units 00:12 01:19 WBC (4.5-11.0) K/mm3 MCV (79-97) fl MCH (28-32) pg RDW (13.2-15.2) % Seg Neuts % (Manual) (40.0-70.0) % Lymphocytes % (Manual) (13.4-35.0) % Seg Neutrophils # Man (1.8-7.7) K/mm3 Lymphocytes # (Manual) (1.2-5.4) K/mm3 Sodium (137-145) mmol/L Potassium (3.6-5.0) mmol/L Chloride (98-107) mmol/L Carbon Dioxide (22-30) mmol/L BUN 19 H (7-17) mg/dL Glucose 145 H (65-100) mg/dL Uric Acid (3.5-7.6) mg/dL Calcium 6.8 L D (8.4-10.2) mg/dL AST (5-40) units/L Total Creatine Kinase (30-135) units/L Urine WBC (Auto) 22.0 H (0.0-6.0) /HPF Salicylates (2.8-20.0) mg/dL Acetaminophen (10.0-30.0) ug/mL Phenytoin (10.0-20.0) ug/mL All other labs normal.
--- NOTE | 2020-09-09 10:28 | Electrocardiograph Report ---
[facility] Test Date: 2020-09-08 Test Time: 21:51:22 Pat Name: TRINA HORTA Department: Room: Gender: F Chief Wellness Officer: JEREMI : 1960 Requested By: BILL PAIZ Order Number: [id number] Reading MD: Paul Hsieh Measurements Intervals Herod Rate: 95 P: 63 AL: 129 QRS: 13 QRSD: 100 T: 37 QT: 419 QTc: 527 Interpretive Statements Sinus rhythm Left ventricular hypertrophy Prolonged QT interval No previous ECG available for comparison Electronically Signed On 09-09-2020 10:28:13 EDT by Paul Hsieh
--- NOTE | 2020-09-09 12:29 | Emergency Department Report ---
Blank Doc - Documentation Documentation: No new events overnight Patient being seen by the psychiatric team Awaiting psychiatric recommendations for disposition
== END 2020-09-09 14:14 | disposition home or self-care (01) ==
LOC: ED 16:31
DX: F10.20 Alcohol dependence, uncomplicated (principal); E87.6 Hypokalemia; E87.1 Hypo-osmolality and hyponatremia; Z13.30 Encounter for screening examination for mental health and behavioral disorders, unspecified; F14.10 Cocaine abuse, uncomplicated; R82.71 Bacteriuria; R82.81 Pyuria; Z88.8 Allergy status to other drugs, medicaments and biological substances; Z20.822 Contact with and (suspected) exposure to COVID-19
CPT/HCPCS: 36415; 80048; 80076; 80178; 80185; 80307; 81001; 82140; 82550; 83735; 83935; 84300; 84443; 84550; 85007; 85025; 87076; 87086; 87186; 93005; 96365; 96366; 96368; 96375; 99284; J0610; J2060; J3360; J3411; J3480; J7030; J7120; U0003; 80320; G0480